=== PATIENT | male | born 1975 | race Caucasian/White ===

== ENCOUNTER → 2023-08-09 | Outpatient (CLI) | payer MEDICAID, SELFPAY ==
--- NOTE | 2023-08-17 09:03 | EKG12_ITS ---
Test Reason : PRE-OP Blood Pressure : / mmHG Vent. Rate : 089 BPM Atrial Rate : 089 BPM P-R Int : 122 ms QRS Dur : 122 ms QT Int : 370 ms P-R-T Axes : 058 085 051 degrees QTc Int : 450 ms Normal sinus rhythm Right bundle branch block Abnormal ECG Confirmed by FELICITY SALTER, CLAIRE ([id number]), supervising editor trailer RAMILA TAYLOR ([id number]) on 08/23/2023 1:31:31 PM Referred By: Tony Palmer Confirmed By:TEJ BLEVINS MD
[2023-08-17 10:56] LABS: Absolute Neutrophil Count 2.1 X10^3/uL (2.0-7.7); Albumin, Serum 3.7 g/dL (3.2-5.0); Anion Gap 2 (5-15); BUN 12 mg/dL (7-18); Basophil# 0.04 X10^3/uL; Basophil% 1.1 % (0-1); Calcium,Total 9.3 mg/dL (8.5-10.1); Chloride 106 mmol/L (98-107); Creatinine, Serum 0.75 mg/dL (0.70-1.30); EST Glomerular Filtration Rate 118 mL/min (>60); Eosinophil# 0.14 X10^3/uL; Eosinophils% 3.7 % (0-5); Est Glom Filt Rate - Afr Amer 143 mL/min (>60); Glucose 103 mg/dL (74-106); Hematocrit 45.8 % (40-54); Hemoglobin 15.3 g/dL (13.0-16.5); Lymphocyte % 26.5 % (19-41); Mean Corp Hgb Conc 33.4 g/dL (32-36); Mean Corpuscular Hgb 31.4 pg (27.0-32.0); Mean Platelet Vol. 9.7 fl (6.2-12.0); Monocyte# 0.52 X10^3/uL; Monocyte% 13.8 % (0-10); NRBC Flagged by Analyzer 0 % (0-5); Neutrophil # 2.06 X10^3/uL (2.7-7.7); Neutrophil % 54.4 % (47-70); Platelet Count 279 K/mm3 (150-450); Potassium 4.5 mmol/L (3.5-5.1); RBC Distribution Width CV 13.2 % (11.6-14.6); RBC Distribution Width SD 45.5 fl (35.1-43.9); Red Blood Count 4.87 M/mm3 (4.6-6.2); Sodium Level 136 mmol/L (136-145); White Blood Count 3.8 K/mm3 (4.4-11.0)
[2023-08-17 11:29] LABS: Magnesium 2.1 mg/dL (1.6-2.6)
--- NOTE | 2023-08-23 13:46 | PCM.HP.BLA ---
History and Physical History and Physical? Patient Name: Samuel Connors : 1975 From:? MONICA LEIJA PA-C? DATE OF PRE-OPERATIVE EXAM: 08/23/2023 DATE OF SURGERY:? 09/01/2023 SCHEDULED PROCEDURE:? Right total hip arthroplasty HISTORY OF PRESENT ILLNESS: Preoperative history and physical exam was performed on August 23, 2023.? This is a 48-year-old male who is been having ongoing pain for several years and bilateral hips.? His pain on average is a 5/10 but can reach 10/10 with activities.? He does have start up pain.? Pain as being constant.? Pain does awaken him at nighttime.? Patient continues to complain of pain in the right groin.? He has been using [id number] ibuprofen and Advil for pain control.? He does get some occasional low back pain.? Patient states he has decreased significantly as alcohol consumption is only drinking one beer every other day.? Patient struggles while working in a [employer] shop due to the prolonged standing and walking.? He has medical history pertinent for hypertension.? He has had surgical clearance by the primary care physician Dr. Tariq Varner.? Patient denies past history of DVT or pulmonary embolism.? Denies any recent chest pain, short breath, fevers chills or recent infections.? After failing conservative measures and discussing all treatment options with Dr. Tony Palmer, the patient does wish to proceed with a right total hip arthroplasty. REVIEW OF SYSTEMS: Review Of Systems: Constitutional: Denies change in appetite, fever and weight change. Cardiovasular: Denies chest pain, heart murmur and irregular heartbeat. Respiratory: Denies cough, pneumonia, shortness of breath, tuberculosis and wheezing. Gastrointestinal: Denies constipation, diarrhea, heartburn, nausea, rectal itching, bloody stools and vomiting. Musculoskeletal: Reports gait disturbance, pain, trouble walking and weakness, but denies leg swelling. Skin: Reports tattoo, but denies Raynaud's and history of shingles. Neurological: Denies ambulatory dysfunction, dizziness, numbness/tingling and tremor. Psychiatric: Denies anxiety, insomnia and stress. Hematologic/Lymphatic: Denies anemia, bleeding/bruising tendency and past transfusion. Reviewed, no changes. PAST MEDICAL HISTORY: Advance Care Plan: No Advance Directives Effective Date: 02/10/2023 Past Medical History: Medical Problems: High Blood Pressure Accidents: None Surgical Hx: None Anesthesia Complications: None Assistive Devices: None Reviewed, no changes. SOCIAL HISTORY: Social History: Marital: Single.Occupation: [employer] .Work Status: Currently Working.Hand Dominance: Right-handed. Personal Habits:? Cigarette Use: Heavy tobacco smoker (more than 10 cigarettes/day).Smokeless Tobacco: Never Used Smokeless Tobacco.E-Cigarette Use: Never used.Alcohol: Currently consumes alcohol - every other day.Drug Use: Denies Use.Enjoy Exercising: Never Exercises. Reviewed, no changes. VITALS: Ht: 65 Wt: 170lb Wt k.112 BMI: 28.3 BP: 134/76 Pulse: 65 Resp: 16 T: 98.2 T: 36.8C Pain Level: 5 O2SatR: 98 ALLERGIES: No Known Drug Allergy? MEDICATIONS: Lisinopril 30 mg take 1 tablet by mouth once daily PRE-OP EXAM:? General appearance:NORMAL? ? ? Other: Eyes: Conjunctivae and lids: NORMAL? Pupils: ERR Ears, Nose, Mouth, and Throat: NORMAL? Other: Inspection of lips, teeth and gums: NORMAL? ?Other: Neck: Examination of neck: no masses noted. Respiratory: Assessment of respiratory effort: NORMAL? ?Other: ?Auscultation of lungs: clear to auscultation no wheezes, rhonchi or rales. Cardiovascular:? Auscultation of heart: regular rate and rhythm, no murmurs, gallops or rubs. PHYSICAL EXAMINATION: Patient does walk with an antalgic gait.? Patient has tenderness to palpation over the lateral hip on the right side at the greater trochanteric region.? He has a 30 hip flexion contracture.? Internal rotation neutral, external rotation 5.? Right hip flexion approximately 60.? Sensation intact to light touch. IMAGING STUDIES: Previous x-rays of the right hip reveal severe joint space narrowing with subchondral sclerosis, osteophyte formation and significant subchondral cyst with underlying collapse versus avascular necrosis with femoral head collapse.? Left hip also reveals severe stage IV bone on bone osteoarthritis. IMPRESSION: 1.? Severe right hip osteoarthritis 2.? Hypertension 3.? Alcohol consumption 1 every other day 4.? Overweight with a BMI 28.3 PLAN: Dr. Tony Palmer did discuss and review with the patient all treatment options including surgical versus nonsurgical options.? Patient does wish to proceed with the above-stated procedure.? Potential risks, benefits, and complications of the procedure were discussed in detail including but not limited to , infection, nerve and blood vessel damage, persistent pain, numbness, tingling, paresthesias, blood clot, pulmonary embolism, and requirement for possible further surgery.? The patient expressed full understanding and has no further questions for the doctor.? Patient does agree to proceed with the above-stated procedure and has signed the surgery consent form. POST-OP MEDICATION PLAN: Pain Medications:? Postoperative pain regimen will be initiated by Dr. Tony Palmer in the hospital.? I did advise the patient on his alcohol consumption and the potential risk with the narcotics and Tylenol.? He did voice understanding.? Patient states he does have a walker that he will bring to the hospital.? Patient was instructed on nutritional protocol with protein drinks. DVT Prophylaxis:? Aspirin 81 mg twice daily for 4 weeks postoperatively.? Denies past history of DVT or pulmonary embolism This dictation was created using voice recognition software. Phonetic and/or grammatical errors may exist. ___? I have re-examined the patient.? There are no clinical changes since date of exam. ___? See progress notes for changes. ___? Dictated on admission Date: ? ? ?Time: Signature:
== END | disposition home or self-care (01) ==
LOC: SDC 12-21 08:43
PROVIDERS: Anesthesiology; Referring Provider Specialist; Visit Provider Specialist
DX: Z01.818 Encounter for other preprocedural examination (principal); Z01.810 Encounter for preprocedural cardiovascular examination
CPT/HCPCS: 36415; 80048; 82040; 83735; 85025; 87081; 93005; J3475

== ENCOUNTER 2023-11-01 12:57 | Observation (INO) | payer MEDICAID, SELFPAY ==
--- NOTE | 2023-10-22 08:26 | EKG12_ITS ---
Test Reason : PREOP Blood Pressure : / mmHG Vent. Rate : 087 BPM Atrial Rate : 087 BPM P-R Int : 132 ms QRS Dur : 126 ms QT Int : 358 ms P-R-T Axes : 064 083 049 degrees QTc Int : 430 ms Normal sinus rhythm Right bundle branch block Abnormal ECG Confirmed by Keyur Diaz ([id number]), manager editorial RAMILA TAYLOR ([id number]) on 10/25/2023 10:35:34 AM Referred By: Tony Palmer Confirmed By:Keyur Diaz
[2023-10-22 10:02] LABS: Hematocrit 48.8 % (40-54); Hemoglobin 16.5 g/dL (13.0-16.5); Mean Corp Hgb Conc 33.8 g/dL (32-36); Mean Corpuscular Hgb 31.9 pg (27.0-32.0); Mean Corpuscular Volume 94.4 fL (80-94); Mean Platelet Vol. 9.7 fl (6.2-12.0); Platelet Count 282 K/mm3 (150-450); RBC Distribution Width CV 12.7 % (11.6-14.6); RBC Distribution Width SD 43.9 fl (35.1-43.9); Red Blood Count 5.17 M/mm3 (4.6-6.2); White Blood Count 3.8 K/mm3 (4.4-11.0)
[2023-10-22 10:26] LABS: Albumin, Serum 3.6 g/dL (3.2-5.0); Anion Gap 3 (5-15); BUN 12 mg/dL (7-18); BUN/Creat Ratio 14.3 RATIO (10-20); Calcium,Total 9.3 mg/dL (8.5-10.1); Chloride 104 mmol/L (98-107); Creatinine, Serum 0.84 mg/dL (0.70-1.30); EST Glomerular Filtration Rate 104 mL/min (>60); Est Glom Filt Rate - Afr Amer 126 mL/min (>60); Glucose 87 mg/dL (74-106); Potassium 4.9 mmol/L (3.5-5.1); Sodium Level 136 mmol/L (136-145)
--- NOTE | 2023-10-22 13:56 | PCM.HP.BLA ---
History and Physical History and Physical Patient Name: Samuel Connors : 1975From:? MONICA LEIJA PA-C DATE OF PRE-OPERATIVE EXAM: 10/22/2023 DATE OF SURGERY:? 11/01/2023 SCHEDULED PROCEDURE:? Right direct anterior total hip arthroplasty HISTORY OF PRESENT ILLNESS: Preoperative history and physical exam was performed on October 22, 2023.? This is a 48-year-old male who had his previous scheduled surgery for a right total hip arthroplasty canceled due to insurance reasons.? He has approval to proceed forward again for the hip replacement.? Patient's pain has been going on for several years.? Pain can still reach at ?10/10 with activities.? He has been walking with a significant limping gait.? He has start up pain.? Pain is being constant.? Pain does awaken him at nighttime.? Patient is now getting more pain associated in the left hip as well.? He has had ongoing pain in both hips for years.? Patient has continued to decrease his alcohol: Consumption and drinking only one beer every other day.? Patient struggles with activities of daily living due to the pain.? He has had previous surgical clearance from primary care provider Dr. Patric Varner.? Patient has medical history pertinent for hypertension.? He denies past history of DVT or pulmonary embolism.? No recent chest pain, shards breath, fevers chills or recent infections.? After failing conservative measures and discussing all treatment options with Dr. Tony Palmer, the patient does wish to proceed with a direct anterior right total hip arthroplasty.? Patient has had repeated lab work which has been reviewed. REVIEW OF SYSTEMS: Review Of Systems: Constitutional: Denies change in appetite, fever and weight change. Cardiovasular: Denies chest pain, heart murmur and irregular heartbeat. Respiratory: Denies cough, pneumonia, shortness of breath, tuberculosis and wheezing. Gastrointestinal: Denies constipation, diarrhea, heartburn, nausea, rectal itching, bloody stools and vomiting. Musculoskeletal: Reports gait disturbance, pain, trouble walking and weakness, but denies leg swelling. Skin: Reports tattoo, but denies Raynaud's and history of shingles. Neurological: Denies ambulatory dysfunction, dizziness, numbness/tingling and tremor. Psychiatric: Denies anxiety, insomnia and stress. Hematologic/Lymphatic: Denies anemia, bleeding/bruising tendency and past transfusion. Reviewed, no changes. PAST MEDICAL HISTORY: Advance Care Plan: No Advance Directives Effective Date: 02/10/2023 Past Medical History: Medical Problems: High Blood Pressure Accidents: None Surgical Hx: None Anesthesia Complications: None Assistive Devices: None Reviewed, no changes. SOCIAL HISTORY: Social History: Marital: Single.Occupation: [employer] .Work Status: Currently Working.Hand Dominance: Right-handed. Personal Habits:? Cigarette Use: Heavy tobacco smoker (more than 10 cigarettes/day).Smokeless Tobacco: Never Used Smokeless Tobacco.E-Cigarette Use: Never used.Alcohol: Currently consumes alcohol - every other day.Drug Use: Denies Use.Enjoy Exercising: Never Exercises. Reviewed, no changes. VITALS: Ht: 65 Wt: 175lb Wt k.380 BMI: 29.1 BP: 130/66 Pulse: 98 T: 97.3 T: 36.3C Pain Level: 5 O2SatR: 97 ALLERGIES: No Known Drug Allergy MEDICATIONS: Lisinopril 30 mg take 1 tablet by mouth once daily PRE-OP EXAM: General appearance:NORMAL? Other: Eyes: Conjunctivae and lids: NORMAL? Pupils: ERR Ears, Nose, Mouth, and Throat: NORMAL? Other: Inspection of lips, teeth and gums: NORMAL?? Other: Neck: Examination of neck: no masses noted. Respiratory: Assessment of respiratory effort: NORMAL?? Other: ? Auscultation of lungs: clear to auscultation no wheezes, rhonchi or rales. Cardiovascular:? Auscultation of heart: regular rate and rhythm, no murmurs, gallops or rubs. PHYSICAL EXAMINATION: Patient continues to walk with a significant limping gait.? He is currently using no ambulatory assistance.? Patient has tenderness to palpation over the lateral hip on the right side at the greater trochanteric region.? He is having some mild tenderness palpation on the left lateral hip.? He has a 30 hip flexion contracture.? Internal rotation neutral, external rotation 5.? Right hip flexion approximately 60.? Sensation intact to light touch. IMAGING STUDIES: Previous x-rays of the right hip reveal severe joint space narrowing with subchondral sclerosis, osteophyte formation and significant subchondral cyst with underlying collapse versus avascular necrosis with femoral head collapse.? Left hip also reveals severe stage IV bone on bone osteoarthritis. IMPRESSION: 1.? Severe right hip osteoarthritis 2.? Left hip osteoarthritis 3.? Hypertension 4.? Alcohol consumption 1 every other day 5.? Overweight with a BMI 29.1 PLAN: Dr. Tony Palmer did discuss and review with the patient all treatment options including surgical versus nonsurgical options.? Patient does wish to proceed with the above-stated procedure.? Potential risks, benefits, and complications of the procedure were discussed in detail including but not limited to , infection, nerve and blood vessel damage, persistent pain, numbness, tingling, paresthesias, blood clot, pulmonary embolism, and requirement for possible further surgery.? The patient expressed full understanding and has no further questions for the doctor.? Patient does agree to proceed with the above-stated procedure and has signed the surgery consent form. POST-OP MEDICATION PLAN: Pain Medications:? Postoperative pain regimen will be initiated by Dr. Tony Palmer in the hospital.? I did advise the patient on his alcohol consumption and the potential risk with the narcotics and Tylenol.? He did voice understanding.? Patient states he does have a walker that he will bring to the hospital.? Patient's repeat labs are been reviewed and stable.? Patient was instructed on nutritional protocol with protein drinks. DVT Prophylaxis:? Aspirin 81 mg twice daily for 4 weeks postoperatively.? Denies past history of DVT or pulmonary embolism This dictation was created using voice recognition software. Phonetic and/or grammatical errors may exist. ___? I have re-examined the patient.? There are no clinical changes since date of exam. ___? See progress notes for changes. ___? Dictated on admission Date: ? Time: Signature:
[2023-11-01] VITALS (15 sets, daily range): BP systolic 95–135; BP diastolic 56–97; PULSE 60–90; RESP 14–18; TEMP 36.1–37; O2SAT 96–100; BMI 29.7
[2023-11-01] MEDS: Celecoxib 200 MG Capsule 400 MG PO (08:52)
[2023-11-01] MEDS: Gabapentin 600 MG Tablet PO (08:52)
[2023-11-01] MEDS: Acetaminophen 500 MG Tablet 1000 MG PO ×3 (08:52→21:54)
[2023-11-01] MEDS: Lactated Ringers 1,000 ML 999 ML IV ×2 (08:53→12:20)
[2023-11-01] MEDS: Lactated Ringers 1,000 ML 15 ML IV (08:54)
[2023-11-01] MEDS: Magnesium 1 GM over 15 mins IV (08:54)
--- NOTE | 2023-11-01 09:04 | PCM.PRE.AN2 ---
ASA Classification* ASA Classification ASA Classification: 2 Assessment & Plan Anesthesia* Anesthesia Assessment Anesthesia Assessment: Discussed sedation and/or anesthesia options, risks, benefits, and alternatives with patient/parents/legal guardian/POA. Questions invited. The patient/parents/legal guardian/POA seems to understand and agrees to proceed with anesthesia plan. Reviewed the physical assessment, medical history, allergy history and patient home medications list prior to surgery/procedure/anesthetic and documented any changes. Performed airway and anesthesia risk assessments. Anesthesia Type Anesthesia Type: Spinal Anesthesia Focused Assessment* Temperature: 97.0 F Pulse Rate: 90 Blood Pressure: 135/97 Respiratory Rate: 18 Pulse Ox: 99 Airway Assessment Mouth opens: >3 cm Mallampati Score: II Focused Labs Anesthesia Preop lab: CBC WBC 3.8 K/mm3 (4.4-11.0) L 10/22/23 08:44 RBC 5.17 M/mm3 (4.6-6.2) 10/22/23 08:44 Hgb 16.5 g/dL (13.0-16.5) 10/22/23 08:44 Hct 48.8 % (40-54) 10/22/23 08:44 Plt Count 282 K/mm3 (150-450) 10/22/23 08:44 CHEMISTRY Potassium 4.9 mmol/L (3.5-5.1) 10/22/23 08:44 Sodium 136 mmol/L (136-145) 10/22/23 08:44 Magnesium 2.1 mg/dL (1.6-2.6) 08/17/23 09:32 BUN 12 mg/dL (7-18) 10/22/23 08:44 Creatinine 0.84 mg/dL (0.70-1.30) 10/22/23 08:44 Glucose 87 mg/dL (74-106) 10/22/23 08:44 COAG Pre-Assessment Diagnosis/Proposed Procedure Planned Operative Procedure(s): RIGHT DIRECT ANTERIOR TOTAL HIP ARTHROPLASTY Anesthesia History 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 When Was Last Pacemaker Check QUESTION #4 FULL TEXT: You/Your Family Experience fever (hyperthermia) with Anesthesia Last Oral Intake Last Oral intake: Last Oral Intake NPO since 23:15 11/01/23 08:46 Meds taken in AM with sips of No 11/01/23 08:46 water? 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 Female No 10/11/23 10:05 HX of Motion Sickness No 10/11/23 10:05 HX of N/V After Surgery No 10/11/23 10:05 Non-Smoker No 10/11/23 10:05 Duration of Surgery greater Yes 10/11/23 10:05 than 60 minutes Number of Risk Factors 1 10/11/23 10:05 PONV Score Low Risk 10/11/23 10:05 Height & Weight Height & Weight: Anesthesia: Height & Weight Height 5 ft 4 in 11/01/23 08:46 Weight: 78.471 kg 11/01/23 08:46 Body Mass Index (BMI) 29.7 11/01/23 08:46 Respiratory Assessment Respiratory Assessment - refractory products supervisor: Respiratory Tract Infection Hx - refractory products supervisor Hx Respiratory Tract Infection No 10/11/23 10:05 STOP Sleep Apnea STOP Sleep Apnea - refractory products supervisor: STOP Sleep Apnea - refractory products supervisor Hx Hypertension Yes: CONTROLLED WITH MED 10/11/23 10:05 Hx Sleep Apnea No 10/11/23 10:05 CPAP BIPAP Do you snore loudly (louder No 10/11/23 10:05 than talking or can be heard Do you often feel tired/ No 10/11/23 10:05 fatigued/ sleepy during daytime? Has anyone observed you stop No 10/11/23 10:05 breathing during sleep? STOP Results Negative 10/11/23 10:05 QUESTION #5 FULL TEXT : Do you snore loudly (louder than talking or can be heard through closed doors)? 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 Specify any problems Hx of Preganancy in last 3 N/A 10/11/23 10:05 Months Nurse Filling Out Transfusion DSCHRIBER 10/11/23 10:05 & Questions: Date: 10/11/23 10/11/23 10:05 Time: 10:06 10/11/23 10:05 Patient unable to answer at this time (ie. confused, unrespo /Reproduction History /Reproductive History - refractory products supervisor: /Reproductive Hx- refractory products supervisor Hx Now Gestational Age (in weeks): EDC: Hx Hx Para Hx Section SAB No 10/11/23 10:05 Active Medications Active Medications: Current Medications Generic Name Dose Route Start Last Admin Trade Name Cele PRN Reason Stop Dose Admin Acetaminophen 1,000 mg 11/01/23 10:30 11/01/23 08:52 Acetaminophen 500 Mg Tablet PO 11/01/23 10:31 1,000 mg X1 ONE Administration Celecoxib 400 mg 11/01/23 10:30 11/01/23 08:52 Celecoxib 200 Mg Capsule PO 11/01/23 10:31 400 mg X1 ONE Administration Sodium Chloride 77.4 ml/ 0 ml 11/01/23 10:30 Ropivacaine 200 mg/ OPERA.SITE 11/01/23 10:31 Epinephrine HCl 0.6 mg/ X1 ONE Ketorolac Tromethamine 30 mg/ Morphine Sulfate 5 mg Dexamethasone Sodium Phosphate 10 mg 11/01/23 10:30 Dexamethasone 10 Mg/Ml Vial IV 11/01/23 10:31 X1 ONE Gabapentin 600 mg 11/01/23 10:30 11/01/23 08:52 Gabapentin 600 Mg Tablet PO 11/01/23 10:31 600 mg X1 ONE Administration Lactated Ringer's 1,000 mls @ 999 mls/hr 11/01/23 10:30 11/01/23 08:53 IV 11/01/23 11:30 999 mls/hr .Q1H1M SAM Administration Cefazolin Sodium 2 gm/ Sodium 110 mls @ 150 mls/hr 11/01/23 10:30 Chloride IV 11/01/23 11:13 PREOP ONE Tranexamic Acid 1,000 mg/ 110 mls @ 660 mls/hr 11/01/23 10:30 Sodium Chloride IV 11/01/23 10:39 X1 ONE Tranexamic Acid 1,000 mg/ 110 mls @ 660 mls/hr 11/01/23 10:30 Sodium Chloride IV 11/01/23 10:39 X1 ONE Lactated Ringer's 1,000 mls @ 999 mls/hr 11/01/23 10:30 IV 11/01/23 11:30 .Q1H1M SAM Magnesium Sulfate 1 gm/ 102 mls @ 408 mls/hr 11/01/23 10:30 11/01/23 08:54 Dextrose IV 11/01/23 10:44 408 mls/hr X1 ONE Administration Lactated Ringer's 1,000 mls @ 15 mls/hr 11/01/23 08:30 11/01/23 08:54 IV 15 mls/hr .Q48H SAM Administration Insulin Human Lispro 1 - 6 unit 11/01/23 10:30 Insulin Lispro 100 Unit/Ml Insuln.Pen SC Q4H PRN PRN BG>/= 180, SEE PROTOCOL Protocol PFSH Medical History Arthritis Smoker History of pain when walking Hypertension Home Medications ?Medication ?Instructions ?Recorded ?Last Taken ?Type ibuprofen 200 mg tablet (Advil) 400 mg PO TID PRN PRN pain 08/10/23 Unknown History lisinopril 30 mg tablet 30 mg PO QHS 08/10/23 10/30/23 History Allergy/AdvReac Type Severity Reaction Status Date / Time No Known Allergies Allergy Verified 11/01/23 08:43 Surgical History Hx of foot surgery Social History Smoking Status: Current every day smoker tobacco type: cigarettes Review of Systems (Anesthesia) ROS Narrative System reviewed and no additional complaints, except as documented.
[2023-11-01 09:13] LABS: Bedside Glucose 120 mg/dL (74-106)
[2023-11-01] MEDS: Cefazolin 2 GM in 0.9% Normal Saline (100mL Bag) 100 ML IV (10:30)
--- NOTE | 2023-11-01 10:30 | FEM_PTH ---
PATIENT: DANIEL SOLANO LOC: [facility] U#:[id number] AGE/SX: 48/M ROOM: CO317 RE11/01/[address]: Dr. Tony Palmer MD : 1975 BED: 1 DIS: 11/02/2023 SPEC #: [id number] RECD: 11/01/23 15:13 STATUS: SHIRIN MALHOTRAGurwinder #: [id number] SUSANNA: 11/01/23 10:[address]: Tony Palmer DEPT: SURGICAL PATHOLOGY RECD BY: Amalia Dean ENTERED: 11/02/23 10:28 SP TYPE: FEM HEAD OTHR DR: DO Dr. Ian Lozoya MD No Primary Care Phys Tissues: Femoral region, NOS Procedures: Decalcification bone/plaque Surgery Specimen Level V HEADER OPERATION: Total hip anterior approach PRE-OP DIAGNOSIS: Severe right hip osteoarthritis TISSUE SUBMITTED: Right hip femoral head bone and tissue MICROSCOPIC DIAGNOSIS Right hip bone and soft tissue, total hip replacement/resection: Femoral head with degenerative osteoarthritic changes. Fibroadipose tissue, fibroconnective tissue and reactive synovial tissue. VESTA: 11/05/2023 MICROSCOPIC DESCRIPTION Slides are reviewed. GROSS DESCRIPTION Received is one container labeled with the patient's name and designated bone and soft tissue right hip. The femoral head measures 5.0 x 5.0 x 4.0 cm. Also present in the container is two pieces of bone consistent piece of femoral neck measures in aggregate 5.5 x 4.0 x 2.0cm. The articular surface displays prominent osteophyte formation, and bone erosion. Also present in the specimen container are multiple irregular fragments of pink-yellow soft tissue measuring in aggregate 5.5 x 5.5 x 1.5 cm. Bed Laborer sections are submitted in two cassettes as follows: 1 - soft tissue, 2 - bone after decalcification. VESTA/ 11/02/2023 TC:5 CPT: 78603, 90837
[2023-11-01] MEDS: TXA 1000mg in NS100 100ml (IVPB at Incision) 660 MG IV (10:45)
[2023-11-01] MEDS: dexAMETHasone 10 MG/ML Vial IV (11:00)
--- NOTE | 2023-11-01 11:20 | RAD_ITS ---
INDICATION: PAIN EXAMINATION/TECHNIQUE: X-RAY - XR Hip Unilateral with Pelvis when performed; 1 View COMPARISON: No relevant prior comparison study available FINDINGS: Four intraoperative images of the right hip were submitted. There is a right total hip arthroplasty in place. The alignment is anatomic. No suspicious bony lesions are seen. No acute fracture nor dislocation. RAD/Hip 1 view with Pelvis IMPRESSION: Total right hip arthroplasty, grossly anatomic in alignment. Electronically Signed: Erma Wren MD at 8:24 EDT ,
[2023-11-01] MEDS: TXA 1000mg in NS100 100ml (IVPB at Closure) 660 MG IV (11:37)
--- NOTE | 2023-11-01 11:37 | PCM.OPRPT ---
Report of Operation Date of Procedure: 11/01/23 Pre-Operative Diagnosis: Right hip primary osteoarthritis Post-Operative Diagnosis: Right hip primary osteoarthritis Surgery/Procedure Performed:: Right minimally invasive direct anterior total hip replacement Description of Surgical Findings:: Stable hip with equal leg length Surgeon: Tony Palmer automated manufacturing instructor: Francisco Castorena Type of Anesthesia: Spinal Anesthesiologist: Francisco Castorena Special Medications: 2 g Ancef, 1 g TXA at incision, 1 g TXA closure, 10 mg Decadron, joint cocktail (5 mg Duramorph, 30 mL of 0.5% Ropivicaine, 1000 units of epinephrine, 30 mg of Toradol) Specimen's removed: Bony cuts Estimated Blood Loss (mL): 150 Fluids Replaced: 1000 ml crystalloid Description of Procedure: Components used: 1. Insignia Ann-Marie femoral stem size 4 HO 2. [place] trident 2 acetabular shell size 52 mm 3. Ann-Marie X3 polyethylene E 4. [place] Biolox delta 36mm, 0mm femoral head Brief history operative indications: 48 yo f who failed conservative measures for their hip osteoarthritis. X-rays were consistent with osteoarthritis including joint space narrowing, osteophyte formation and subchondral cysts. Total hip replacement was discussed with the patient with risks and benefits including but not limited to blood loss, DVTs, PEs, neurovascular damage, dislocation, general risks of anesthesia including loss of life. Patient demonstrated an understanding medical clearance is obtained the patient was consented for surgery. Procedure: On the date of procedure the patient's right hip was marked in the preoperative area. Patient was then taken back to the operating room where anesthesia assumed control of the C-spine and airway and administered anesthetic. Patient was transferred to the operating table and placed in the supine position. The hips were placed at the break of the bed and a sacral bump was placed. The right lower extremity was then prepped out in a sterile fashion using chlorhexidine while the surgeon scrubbed. The PA was vital in the positioning of the patient. Upon reentering the room the right lower extremity was draped in the standard orthopedic fashion and the incision was marked. A timeout was called and everyone agreed upon the side, the site, the procedure be performed, antibody given, and patient's identity. At this time incision was made through skin, subcutaneous tissue, and fat down to fascia. The fascia was then incised and the TFL was retracted laterally. A retractor was placed on the lateral border of the femoral neck. Attention was directed to the inferior portion of the approach and all crossing vessels were identified and appropriately coagulated. A retractor was then placed on the medial portion of the femoral neck. The anterior capsule was then cleared of all soft tissue and then H shaped capsulotomy was made. The retractors were then placed inside the capsule. The femoral neck was identified and a cleanup cut was made. At this time a power corkscrew was used to remove the femoral head. Attention was then turned toward the acetabulum where the soft tissues were appropriately retracted and the acetabulum was sequentially reamed to 52 mm. A 52 mm cup was then selected and impacted into place. Acetabular liner was impacted into place and locking mechanism was verified. The position of the acetabular cup was then verified under live fluoroscopy. Attention was then turned to the femur. Soft tissue releases on the medial and lateral femoral neck were appropriately done, the leg was externally rotated and lateralized. A Bennett retractor was placed medially and proximally to the greater trochanter this allowed appropriate visualization and exposure of the femoral canal. Rongeour was then used to remove excess lateral bone. A canal finder and entry broach were used to open the proximal canal. Once we verified we were down the femoral canal we subsequently broached up to a size 4 femur. The appropriate neck was placed in the previously selected head was trialed with a 0 mm neck. Traction was pulled and the hip was reduced with internal rotation. Once it was appropriately reduced and stability was checked. There was minimal shuck, equal leg lengths and appropriate stability with hyperextension and external rotation as well as with 90? flexion and internal rotation. Fluoroscopy was then also used to verify the position of the components and leg lengths using the contralateral side for comparison. The trial components were then dislocated the proximal femur was again exposed and the components were removed from the wound. The final components were verified and opened. The wound was copiously irrigated out with normal saline. The acetabulum was checked for any residual debris. The final components were placed and impacted. Traction and internal rotation were again used to reduce the hip. After adequate reduction the hip remained stable with appropriate leg lengths. The final components were once again checked with live fluoroscopy and were found to be satisfactory. The wound was then copiously irrigated with normal saline once more, and hemostasis was obtained. Closure was then done using #1 Vicryl runner to close the fascia. A 2-0 vicryl interuppted sutures were used to close the subcutaneous skin. A 3-0 Monocryl and Steri-Strips were used for final skin closure. A Silverlon dressing was placed. Patient was awakened by anesthesia and transferred to the [facility] [place] [facility]. Patient was then transferred to the PACU for recovery. During the course of the procedure the physician stock preparation operator (PE) played a vital role. Their intimate knowledge of my steps in the procedure aided in safe and expedient completion of the procedure. The PE played a vital rolls in positioning particularly in obtaining the appropriate positioning of the sacral bump. The PE was also vital in the retraction of soft tissues during the exposure and especially the femoral work as this is a vital part of the procedure to prevent complications and fractures. The PE was also vital and protecting soft tissues during times of bony cuts and reaming. He also played a vital role in closure with my direct supervision. The PE was also important during reduction and dislocation of the joint and trials intraoperatively. Postoperative plan: Patient will get 24 hours postop antibiotics. Patient will get in-house physical therapy and will be weight-bear as tolerated. Patient will follow up in office in 2 weeks for a wound check and x-rays. Aspirin 81 mg twice daily. On the day of surgery, patient was again cautioned on the dangers of mixing postoperative narcotics and alcohol. Complications No intraoperative complications Admit VTE Documentation VTE Present on Admission: No VTE Mechan Device Prophylaxis: SCD's and Thigh High ARYA Hose VTE Pharm Prophylaxis ordered?: Yes
[2023-11-01] MEDS: JPS (Morphine 10mg/ml) OPERA.SITE (11:41)
--- NOTE | 2023-11-01 12:46 | PCM.POSTANE2 ---
Anesthesia Postop Eval I Sum Anesthesia Postop Eval I Summary Anesthesia Postop Eval I Summary: Anesthesia Postop Eval I: Assessment Summary Airway patent Spontaneous unlabored respirations Mental status nausea Vomiting Anesthesia Postop Eval I: Fluid Summary Crystalloid volume administer (ml) Colloids volume administered ( ml) Blood Product volume administered (ml) Total IV fluid infused Anesthesia Postop Eval I: Summary Notes Anesthesia Complication Anesthesia Complication Comment: Post-operative progress note Anesthesia: Postop Eval II Evaluation Mental status: Awake and Calm Pain Level: 0 nausea: No Vomiting: No Complications Anesthesia Complication: No
--- NOTE | 2023-11-01 13:00 | PCM.POST.ANE ---
Anesthesia: Postop Eval I Current Vital Signs Temperature: 97.5 F Pulse Rate: 81 Blood Pressure: 99/64 Respiratory Rate: 16 Pulse Ox: 98 Oxygen Delivery Method: Room Air Assessment Airway patent: Yes Spontaneous unlabored respirations: Yes Mental status: Awake and Calm nausea: No Vomiting: No Anesthesia Complication: No Fluid Hydration Crystalloid volume administer (ml): 1,200 Total IV fluid infused: 1,200 Progress Note Anesthesia document: Postop Eval 1 completed: Yes
--- NOTE | 2023-11-01 13:08 | RAD_ITS ---
STUDY: X-RAY - PELVIS AND RIGHT HIP REASON FOR EXAM: Male, 48 years old. Post Op -- AP both hips on single tonya/lateral of op hip PACU TECHNIQUE: 2 views of the pelvis and hip. COMPARISON: None. FINDINGS: The patient is status post right total hip replacement. There is good alignment. Postoperative soft tissue changes. RAD/Hip Min 2 Views (Portable) IMPRESSION: Status post right total hip replacement. There is good alignment. Postoperative soft tissue changes. Electronically Signed: Albert Paulino MD at 14:05 EDT ,
--- NOTE | 2023-11-01 13:58 | PCM.POST.ANE ---
Anesthesia: Postop Eval I Current Vital Signs Temperature: 97.6 F Pulse Rate: 77 Blood Pressure: 99/64 Respiratory Rate: 14 Pulse Ox: 98 Oxygen Delivery Method: Room Air Assessment Airway patent: Yes Spontaneous unlabored respirations: Yes Mental status: Awake and Calm nausea: No Vomiting: No Anesthesia Complication: No Fluid Hydration Crystalloid volume administer (ml): 800 Total IV fluid infused: 800 Progress Note Anesthesia document: Postop Eval 1 completed: Yes
--- NOTE | 2023-11-01 15:06 | CON.PCM.HO_ITS ---
Assessment & Plan Assessment/Plan (1) Arthritis: PLAN: Plan This 48 gentleman is being seen as perioperative consult for right hip anterior hip replacement. CBC tomorrow a.m. 1. Right hip primary osteoarthritis: Patient had a right minimally invasive direct anterior total hip replacement on 11/01/2023. Pain control. Incentive spirometry. Bowel and bladder care. Advised quitting smoking. 2. Hypertension: Blood pressure is controlled. On lisinopril 30 mg nightly daily. Continue home medication 3. Chronic smoker: Smokes half pack per day. Nicotine patch if requested with patient. Advised to quit smoking. I counseled him that smoking can delay wound healing adversely. 4. Mild hyperglycemia : Accu-Chek shows 120 mg/dL. Last BMP on 10/14/2023 reported glucose 87. A1c ordered for tomorrow DVT prophylaxis: Moderate risk right hip surgery. As per surgical discretion. Recommended 30-day NOAC agent. Laboratory Results 11/01/23 08:51: POC Glucose 120 H HPI Consult Data Date of Consult: 11/01/23 HPI Narrative Reason for Consultation: Perioperative management of right hip surgery. HPI Narrative: DANIEL SOLANO, is a 48 M who is admitted after elective surgery of right hip primary osteoarthritis, recalcitrant to conservative management for last [address] Dunbar. Currently patient denies any chest pain, shortness of breath, palpitation, abdominal pain or any acute issues with bladder or bowel. No constipation or diarrhea. Denies dysuria. Past medical history: Hypertension, controlled on medication. Primary right hip osteoarthritis as mentioned above. Social history: Patient is smokes half pack per day for last 27 years. No significant alcohol drinking. Denies substance use. Family history: Noncontributory to the present illness [facility] Medical History (Updated 11/01/23 @ 15:[address] Ian Mahajan MD) Arthritis Smoker History of pain when walking Hypertension Home Medications ?Medication ?Instructions ?Recorded ?Last Taken ?Type ibuprofen 200 mg tablet (Advil) 400 mg PO TID PRN PRN pain 08/10/23 Unknown History lisinopril 30 mg tablet 30 mg PO QHS 08/10/23 10/30/23 History Allergy/AdvReac Type Severity Reaction Status Date / Time No Known Allergies Allergy Verified 11/01/23 08:43 Surgical History Hx of foot surgery Social History Smoking Status: Current every day smoker tobacco type: cigarettes ROS ROS Narrative Constitutional: Denies chronic fatigue and weakness. No fever. HEENT: Reports systems reviewed and no addt'l complaints, except as documented Respiratory/Chest: No acute shortness of breath or respiratory distress or wheezing. CVS: No chest pain pressure or tightness Gastrointestinal: Denies coffee ground emesis, hematemesis or vomiting Genitourinary: Denies burning urination or new urinary tract symptoms Musculoskeletal: Chronic right hip pain. Denies acute joint pain or limited range of motion. No acute injury Neurologic: Denies seizure-like symptoms. skin: No ulcer. No rash Endocrinology: Reports systems reviewed and no addt'l complaints, except as documented Hematologic/Lymphatic: Reports systems reviewed and no addt'l complaints, except as documented Rest 14 ROS are negative except as mentioned in HPI Physical Exam Narrative General: Alert, Oriented x3, Cooperative HEENT: Atraumatic, PERRLA, EOMI, Normocephalic Oral: Oral mucosa moist. No Gingival or Mucosal Lesions/ Ulcerations Neck: Supple, No JVD, Negative Carotid Bruits Chest wall/Lungs: Air entry diminished in bilateral lung bases. No crepitation/rhonchi Cardiovascular: Regular rate, Regular Rhythm, Normal S1, Normal S2, No M/G/R Abdomen: Bowel Sounds Present, Soft, Non Tender, Non-Distended : No dysuria. No renal angle tenderness. No suprapubic tenderness. 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 Nontender. No change in growth Musculoskeletal: Right hip anterior surgical dressing is dry. No bruise or hematoma. No Tenderness to Palpation of Joints or Extremities Neurological: Cranial nerves II-XII grossly intact, DTR 2+/4. No acute focal neurological deficit. Psych/Mental Status: Normal Affect, Appropriate. Lab / Micro Data 10/22/23 08:44 10/22/23 08:44 Labs: Laboratory Results - last 24 hr 11/01/23 08:51: POC Glucose 120 H Imaging Radiology Impression Hip X-Ray 11/01/23 13:08 IMPRESSION: Status post right total hip replacement. There is good alignment. Postoperative soft tissue changes. Electronically Signed: Albert Paulino MD at 14:05 EDT , Charges/Coding Visit Charges Office Visits / Consults: [id number] OV L3 New 30min
[2023-11-01] MEDS: Cefazolin 1 GM/50 ML BAG IV ×2 (16:14→23:43)
[2023-11-01] MEDS: Ensure Surgery 237 ML LIQUID PO (16:49)
[2023-11-01] MEDS: Aspirin 81 MG TAB.CHEW PO (21:54)
[2023-11-01] MEDS: Senna/Docusate Sodium 1 Tablet 2 TABLET PO (21:54)
[2023-11-01] MEDS: Lisinopril 10 MG Tablet 30 MG PO (21:54)
[2023-11-02 02:01] VITALS: BP 92/48; PULSE 69; RESP 16; TEMP 37; O2SAT 98
[2023-11-02] MEDS: Ketorolac 15 MG/ML Vial IV (02:12)
[2023-11-02 06:08] VITALS: BP 102/60; PULSE 76; RESP 16; TEMP 36.9; O2SAT 95
[2023-11-02] MEDS: Acetaminophen 500 MG Tablet 1000 MG PO (06:09)
[2023-11-02 06:28] LABS: Absolute Lymphocyte Count 1.09 X10^3/uL (0.83-4.51); Absolute Neutrophil Count 7.6 X10^3/uL (2.0-7.7); Basophil# 0.01 X10^3/uL; Basophil% 0.1 % (0-1); Eosinophil# 0.02 X10^3/uL; Eosinophils% 0.2 % (0-5); Hematocrit 39.8 % (40-54); Hemoglobin 13.4 g/dL (13.0-16.5); Lymphocyte # 1.09 X10^3/ul (0.83-4.51); Lymphocyte % 11.5 % (19-41); Mean Corp Hgb Conc 33.7 g/dL (32-36); Mean Corpuscular Hgb 31.4 pg (27.0-32.0); Mean Corpuscular Volume 93.2 fL (80-94); Mean Platelet Vol. 9.5 fl (6.2-12.0); Monocyte# 0.72 X10^3/uL; Monocyte% 7.6 % (0-10); NRBC Flagged by Analyzer 0 % (0-5); Neutrophil # 7.58 X10^3/uL (2.7-7.7); Neutrophil % 80.2 % (47-70); Platelet Count 232 K/mm3 (150-450); RBC Distribution Width CV 12.2 % (11.6-14.6); RBC Distribution Width SD 42.1 fl (35.1-43.9); Red Blood Count 4.27 M/mm3 (4.6-6.2); White Blood Count 9.5 K/mm3 (4.4-11.0)
--- NOTE | 2023-11-02 06:56 | PCM.PN.ORT ---
Subjective Subjective The patient was sitting in bed upon examination. Patient denies any chest pain, shortness of breath, dizziness, lightheadedness, nausea or vomiting, or calf pain. Pain is controlled on medications. No adverse overnight events. Patient overall is doing well this morning. He has been up walking. Patient's plan is to go home today as long as medically stable. Patient's pain has been adequately controlled. Patient is only been requiring the Tylenol and IV Toradol at this time. Patient does have outpatient physical therapy established. He will have help at home. Patient has been educated on alcohol consumption and pain medications. This was discussed with Dr. Tony Palmer prior to surgery. Patient states he has significantly cut down on alcohol. He is aware of those risks. Objective Data Objective Data Vital Signs: Vital Signs Temp Pulse Resp BP Pulse Ox O2 Del Method O2 Flow Rate 98.4 F 76 16 102/60 95 Room Air 4 11/02/23 06:08 11/02/23 06:08 11/02/23 06:08 11/02/23 06:08 11/02/23 06:08 11/02/23 06:08 11/01/23 13:37 Oxygen Flow Rate (L/min) 4 Oxygen Delivery Method Room Air Weight: 78.471 kg Body Mass Index (BMI) 29.7 Intake & Output: Intake and Output for Last 24 Hours 10/31/23 11/01/23 11/02/23 23:59 23:59 23:59 Intake Total 3682 / 3682 250 / 250 Output Total 1200 / 1200 675 / 675 Balance 2482 / 2482 -425 / -425 Lab / Micro Data 11/02/23 06:02 10/22/23 08:44 Labs: Laboratory Results - last 24 hr 11/01/23 08:51: POC Glucose 120 H 11/02/23 06:02: WBC 9.5, RBC 4.27 L, Hgb 13.4, Hct 39.8 L, MCV 93.2, MCH 31.4, MCHC 33.7, RDW Std Deviation 42.1, RDW Coeff of Lucille 12.2, Plt Count 232, MPV 9.5, Immature Gran % (Auto) 0.400, Neut % (Auto) 80.2 H, Lymph % (Auto) 11.5 L, [place] % (Auto) 7.6, Eos % (Auto) 0.2, Baso % (Auto) 0.1, Absolute Neuts (auto) 7.6, Absolute Lymphs (auto) 1.09, Nucleated RBC % 0 Radiography Diagnostic Testing: Radiology Impression Hip X-Ray 11/01/23 13:08 IMPRESSION: Status post right total hip replacement. There is good alignment. Postoperative soft tissue changes. Electronically Signed: Albert Paulino MD at 14:05 EDT , Physical Exam Narrative Vital signs stable and afebrile. Right hip is soft and supple SCDs and ARYA hose are in place bilaterally Patient is able to plantarflex and dorsiflex actively. Sensation is intact to light touch to saphenous, sural, superficial and deep peroneal, and tibial distribution. Dressing is clean dry and intact. Negative Homans bilaterally, negative signs and symptoms of DVT. Const alert, oriented x3 and no apparent distress Assessment & Plan Assessment/Plan (1) S/P total right hip arthroplasty: PLAN: 1. S/P right direct anterior total hip arthroplasty POD #1 2. Continue Pain Medications: Patient will continue on the meloxicam primarily for pain control. He is on oxycodone as needed for breakthrough pain. I will discontinue the Tylenol at home. I did discuss with the patient the risks of alcohol and pain medications. He did voiced understanding. Dr. Tony Palmer also discussed with the patient these risks. 3. DVT Prophylaxis: Take 81 mg aspirin twice daily for 4 weeks postoperatively for DVT prophylaxis. Patient denies past history of DVT or pulmonary embolism. 4. PT/OT: Weightbearing as tolerated with walker 5. H & H: 13.4/39.8, asymptomatic. Labs have been reviewed and CBC is stable. Awaiting BMP results 6. Encouraged Incentive Spirometry 7. Patient is aware of postoperative constipation that can occur from 1-3 days postoperatively. Will continue with senna 2 tablets twice daily until first bowel movement. Patient was advised if not having a bowel movement after day 3 she is to contact orthopedics so appropriate change can be made. Patient voiced understanding. 8. Continue postoperative medical treatment per medicine 9. Disposition: Plan will be for probable discharge home this afternoon as long as patient is medically stable, tolerates therapy, and pain is adequately controlled. Patient does have outpatient physical therapy established. He will follow-up per postoperative instructions. Patient would like his medications E scribed to [facility]. Upon discharge he will contact our office with any concerns or questions. I have reviewed the [place] Automated Rx Reporting System (OARRS) report for this patient for refill pattern and other prescriber involvement as part of the appropriate surveillance for the provision of acute and chronic controlled medications. The report was requested and reviewed on the date of this entry and was considered in the prescribing process. This dictation was created using voice recognition software. Phonetic and/or grammatical errors may exist.
--- NOTE | 2023-11-02 07:04 | DCINST_ITS ---
Discharge Instructions Diet Discharge Diet: No restrictions Activity Discharge Activity: May Not Drive (No driving for 6 weeks postoperatively. Must also be off all narcotics and able to walk 100 feet without the use of cane or walker.) May shower in (days): 1 (only if incision is dry and without drainage. Do NOT soak/submerge in tub/pool/bella/stream/hot tub.)) Ice area for (Minutes): 20 (Every 1-2 hours while awake[address] place barrier between ice and skin.) Weight Bearing Status: Weight bearing as tolerated Keep extremity elevated above heart level: Operative Extremity Additional Activity Instructions:: Follow [facility] Post-op Instructions. Once postoperative dressing has been removed only use gentle soap and water over the incision. Do not use any ointments, Neosporin, salves, alcohol pads over the incision for 6 weeks postoperatively. Do not submerge underwater for 6 weeks postoperatively. Wear elastic stockings for 2 weeks. Do NOT use alcohol with narcotic pain medication. Do NOT make important decisions while taking narcotic medication. If you have problems with taking your medication (rash, itching, nausea, etc.) call the office at once. Dressing / Incision Call your doctor if your incision/area has: Continuous Slow Oozing, Sudden Increased Bleeding, Increased Pain/ Swelling, Increased Redness and Foul Smelling Discharge Call your doctor if you observe: Fever of 101 or Higher, Shortness of breath, Chest pain, Calf discomfort and Uncontrolled pain Remove Dressing in: 4 days (Okay to remove dressing on November 06, 2023) Additional Dressing/Incision Instructions:: Follow [facility] Post-op Instructions. Once postoperative dressing has been removed, only use gentle soap and water over the incision. Do not use any ointments, Neosporin, salves, alcohol pads over the incision for 6 weeks postoperatively. Do not submerge underwater for 6 weeks postoperatively. Continue with ARYA hose/elastic stockings for 2 weeks postoperatively. May remove at nighttime but needs to be placed back on the leg during the day. Do NOT use alcohol with narcotic pain medication. Do NOT make important decisions while taking narcotic medication. If you have problems with taking your medication (rash, itching, nausea, etc.) call the office at once. Follow Up Care Test Results: Test results from this visit will be discussed in further detail at your follow- up appointment, if applicable. Discharge Plan Admission Admit Date/Time: 11/01/23 12:57 Attending Provider: Tony Palmer Primary Care Provider: Care Physician,No Primary Consulting Providers: Ian Mahajan; Bo Metz Discharge Orders/Prescriptions Prescriptions: New aspirin 81 mg tablet,delayed release (DR/EC) 81 mg PO BID 30 Days Qty: 60 0RF Rx Instructions: Take 81 mg aspirin twice daily for 4 weeks postoperatively for DVT prophylaxis. Patient denies past history of DVT or pulmonary embolism. famotidine 20 mg Tablet 20 mg PO DAILY 30 Days Qty: 30 0RF meloxicam 7.5 mg Tablet 7.5 mg PO BID 30 Days Qty: 60 0RF Rx Instructions: Do not take any other nonsteroidal anti-inflammatories while using meloxicam/Mobic. oxycodone 5 mg Tablet 5 - 10 mg PO Q4H PRN PRN (Reason: Pain Score 4-10) 5 Days Qty: 36 0RF sennosides-docusate sodium [Stool Softener-Stimulant Laxat] 8.6-50 mg Tablet 2 tab PO BID 3 Days Qty: 12 0RF Rx Instructions: Take until first bowel movement, then as needed Continued lisinopril 30 mg tablet 30 mg PO QHS Discontinued ibuprofen [Advil] 200 mg tablet 400 mg PO TID PRN PRN (Reason: pain) Referrals / Follow Up: Physical,Therapy [Other] - 11/04/23 10:00 am Care Physician,No Primary [Primary Care Provider] - Francisco Castorena PA-C [Med Staff - Adv Practice Prof] - 11/17/23 2:15 pm Disposition Disposition (needs filled in before D/C Order can be placed): Home, Self Care
[2023-11-02 07:05] VITALS: O2SAT 93
[2023-11-02 07:11] LABS: Anion Gap 3 (5-15); BUN 13 mg/dL (7-18); BUN/Creat Ratio 15.4 RATIO (10-20); Calcium,Total 8.7 mg/dL (8.5-10.1); Chloride 109 mmol/L (98-107); Creatinine, Serum 0.84 mg/dL (0.70-1.30); EST Glomerular Filtration Rate 104 mL/min (>60); Est Glom Filt Rate - Afr Amer 125 mL/min (>60); Estimated Creatinine Clearance 102.88 ml/min; Glucose 141 mg/dL (74-106); Potassium 4.6 mmol/L (3.5-5.1); Sodium Level 140 mmol/L (136-145)
[2023-11-02 07:40] LABS: Hemoglobin A1c 5.1 % (3.8-5.6)
[2023-11-02 09:18] VITALS: BP 109/61; PULSE 86; RESP 18; TEMP 36.8; O2SAT 95
[2023-11-02] MEDS: Aspirin 81 MG TAB.CHEW PO (09:22)
[2023-11-02] MEDS: Senna/Docusate Sodium 1 Tablet 2 TABLET PO (09:22)
[2023-11-02] MEDS: oxyCODONE 5 MG Tablet PO (09:22)
[2023-11-02] MEDS: Famotidine 20 MG Tablet PO (09:22)
--- NOTE | 2023-11-02 09:40 | PHA.DC_ITS ---
Pharmacy [facility] has performed discharge medication reconciliation and counseling for this patient. Patient requested meds to beds, this [facility] called retail and requested delivery. 1. ASPIRIN 81MG PO BID 2. FAMOTIDINE 20MG PO DAILY 3. MELOXICAM 7.5MG PO BID 4. OXYCODONE 5-10MG PO Q4H PRN PAIN 5. SENNA/DOCUSATE 2T PO BID UNTIL FIRST BM, THEN PRN CONSTIPATION The patient's discharge medication list was reviewed for discrepancies and discrepancies were resolved. The patient was counseled on the following discharge medications and changes in medications for homegoing were reviewed. The Reason for Use, instructions for use, and potential side effects were reviewed for all new medications. The patient's questions regarding all of their medications were answered. The patient was able to verbally demonstrate an understanding of their discharge medications. Patient counseled by homemaking rehabilitation consultantOleg. Medications at Discharge Home Medications lisinopril 30 mg tablet 30 mg PO QHS 08/10/23 aspirin 81 mg tablet,delayed release 81 mg PO BID 30 days #60 tabs 11/02/23 famotidine 20 mg tablet 20 mg PO DAILY 30 days #30 tabs 11/02/23 meloxicam 7.5 mg tablet 7.5 mg PO BID 30 days #60 tabs 11/02/23 oxycodone 5 mg tablet 5 - 10 mg (1 - 2 x 5 mg) PO Q4H PRN PRN Pain Score 4-10 5 days #36 tabs 11/02/23 sennosides 8.6 mg-docusate sodium 50 mg tablet (Stool Softener-Stimulant Laxative) 2 tab PO BID 3 days #12 tabs 11/02/23
--- NOTE | 2023-11-02 09:45 | CASEMGMT ---
Order for DC placed this morning. Pt just recently finished with therapy. This RN CM to pt room to discuss DC planning. Pt father at bedside. Pt states that PT went well and that he is ready for DC home today with his father who will be driving him home. Pt states that he is established with OP therapy already and has an appt . Pt denies any further needs and states that he feels safe with this plan moving forward. PLAN: DC Home today with OP Therapy
[2023-11-02 10:11] VITALS: O2SAT 95
== END 2023-11-02 11:06 | disposition home or self-care (01) ==
LOC: SDC 13:06 → MS3 13:06
PROVIDERS: Internal Medicine; Admitting Provider Specialist; Referring Provider Specialist; Visit Provider Specialist
PROC: (CPT 27284; principal; 2023-11-01 10:00)
DX: M16.0 Bilateral primary osteoarthritis of hip (principal); I10 Essential (primary) hypertension; F17.210 Nicotine dependence, cigarettes, uncomplicated; R73.9 Hyperglycemia, unspecified; Z79.899 Other long term (current) drug therapy
CPT/HCPCS: 27130; 01214; 36415; 73501; 73502; 76000; 80048; 82040; 82962; 83036; 85025; 85027; 88307; 88311; 93005; 94668; 96365; 96366; 96375; 97162; 97166; 99221; 99252; 99406; C1776; J7120; G0378; G0463; J3475